=== PATIENT | male | born 1960 | race Caucasian/White ===

== ENCOUNTER 2017-03-03 08:28 | Emergency (ER) | payer BC ==
[2017-03-03 09:38] LABS: HEMOGLOBIN 15.8 gm/dl (14.0-17.5); RED BLOOD COUNT 5.23 M/UL (4.20-5.50); WHITE BLOOD COUNT 10.7 K/UL (4.5-11.0)
[2017-03-03 09:56] LABS: BUN/CREATININE RATIO 21 (0-10)
== END 2017-03-03 14:43 | disposition home or self-care (01) ==
LOC: ER1 08:28
PROVIDERS: Family Medicine
DX: N32.89 Other specified disorders of bladder (principal); Z79.899 Other long term (current) drug therapy; I10 Essential (primary) hypertension; F17.200 Nicotine dependence, unspecified, uncomplicated; N40.0 Benign prostatic hyperplasia without lower urinary tract symptoms
CPT/HCPCS: 36415; 80053; 81001; 85025; 85610; 85730; 96360; 99284

== ENCOUNTER → 2022-05-13 | Outpatient (CLI) | payer OTHER ==
[~2022-05-13] MED LIST: NORCO 5-325 TA1 EACH PO
[2022-05-13 07:41] LABS: HEMOGLOBIN 17.1 gm/dl (14.0-17.5); RED BLOOD COUNT 5.93 M/UL (4.20-5.50); WHITE BLOOD COUNT 10.2 K/UL (4.5-11.0)
[2022-05-13 08:01] LABS: BUN/CREATININE RATIO 15 (0-10)
== END ==
LOC: LAB 06:17
PROVIDERS: Family Medicine
DX: I10 Essential (primary) hypertension (principal); R39.12 Poor urinary stream
CPT/HCPCS: 36415; 80053; 80061; 84153; 84443; 85025